=== PATIENT | male | born 1970 | race Caucasian/White ===

== ENCOUNTER 2017-04-23 10:42 | Emergency (ER) | payer OTHER ==
[2017-04-23 10:50] VITALS: BMI 26.6
--- NOTE | 2017-04-23 10:51 | PDOC ---
History of Present Illness - General History Source: Patient, Spouse Exam Limitations: No Limitations, Language Barrier, Other ( translates for him) - History of Present Illness Initial Comments: 04/23/17 11:14 46 yo male with history of HTN and DM is not taking any medications except daily aspirin developed LLQ pain last night. He has vomited once and had one runny stool this morning, he presents now because the pain is too much! Timing/Duration: 24 hours, intermittent Severity: moderate Modifying Factors: improves with: other (Nothing makes it worse or better) Aspirin Received prior to arrival: Yes: 81 mg x 1 - General Chief Complaint: Pain, Acute Stated Complaint: PAIN Time Seen by Provider: 04/23/17 10:48 Past History - Past Medical History Diabetes: Yes (No Medicines or Insulin) HTN: Yes (No Medicine) - Surgical History Abdominal Surgery: No - Past Medical History Allergies/Adverse Reactions: Allergies Allergy/AdvReac Type Severity Reaction Status Date / Time No Known Allergies Allergy Verified 04/23/17 10:46 Home Medications: Ambulatory Orders Aspirin [ASA -] 81 mg PO DAILY 04/23/17 Losartan Potassium 25 mg PO DAILY 04/23/17 Ondansetron [Zofran Odt -] 4 mg SL TID #21 od.tablet 04/23/17 Oxycodone HCl/Acetaminophen [Percocet 5-325 mg Tablet] 1 tab PO Q6H #20 tablet MDD 6 04/23/17 Sitagliptin Phosphate [Januvia] 25 mg PO DAILY 04/23/17 Tamsulosin HCl [Flomax] 0.4 mg PO DAILY #10 cap.er.24h MDD 1 04/23/17 Review of Systems - Review of Systems Able to Perform ROS?: Yes Is the patient limited [place] proficient: Yes Constitutional: Yes: Loss of Appetite, Malaise. No: Chills, Fever HEENTM: No: Symptoms Reported Respiratory: No: Symptoms reported Cardiac (ROS): No: Symptoms Reported ABD/GI: Yes: See HPI, Diarrhea, Nausea, Vomiting : No: Symptoms Reported Musculoskeletal: No: Symptoms Reported Integumentary: No: Symptoms Reported Neurological: No: Symptoms reported Psychiatric: No: Anxiety, Depression Endocrine: No: Symptoms Reported Hematologic/Lymphatic: No: Symptoms Reported All Other Systems: Reviewed and Negative *Physical Exam - Vital Signs Last Vital Signs Temp Pulse Resp BP Pulse Ox 97.7 F 63 16 152/101 100 04/23/17 10:46 04/23/17 10:46 04/23/17 10:46 04/23/17 10:46 04/23/17 10:46 - Physical Exam Comments: 04/23/17 11:17 WN/WD, Lying on his side, Non-Toxic, NAD General Appearance: Yes: Nourished. No: Apparent Distress HEENT: positive: EOMI, MAYUR, Normal ENT Inspection, Normal Voice, Pharynx Normal Neck: positive: Supple. negative: Tender Respiratory/Chest: positive: Lungs Clear, Normal Breath Sounds. negative: Chest Tender Cardiovascular: positive: Regular Rhythm, Regular Rate. negative: Murmur Gastrointestinal/Abdominal: positive: Normal Bowel Sounds, Tender, Flat, Soft, Tenderness, Other (Tender in LLQ without any peritoneal signs) Male Genitalia: positive: other (not performed) Rectal Exam: positive: deferred Lymphatic: negative: Adenopathy, Tenderness Musculoskeletal: positive: Normal Inspection. negative: CVA Tenderness Extremity: positive: Normal Capillary Refill, Normal Inspection, Normal Range of Motion Integumentary: positive: Normal Color, Dry, Warm Neurologic: positive: fashion model II-XII NML intact, Fully Oriented, Alert, Normal Mood/ Affect ED Treatment Course - LABORATORY CBC & Chemistry Diagram: 04/23/17 11:25 04/23/17 11:25 *DC/Admit/Observation/Transfer - Discharge Dispostion Admit: No Diagnosis at time of Disposition: Calculus of left kidney - Discharge Dispostion Disposition: HOME Condition at time of disposition: Good - Referrals Referrals: Adrián Ruiz MD., MD [Staff Physician] - - Patient Instructions Printed Discharge Instructions: Kidney Stones -- Adult, DI for Kidney Stones Additional Instructions: Sorry this hurts so badly- Follow up with Dr. Ruiz as soon as possible Return to us if worse or new symptoms occur Best- Dr. Rush Ballesteros
[2017-04-23] MEDS ORDERED: ONDANSETRON 4 MG/2 ML VIAL IVPUSH ONE (11:21)
[2017-04-23] MEDS ORDERED: HYDROmorphone HCL CARPU-JECT 1 MG/1 ML DISP.SYRIN IVPUSH ONE (11:21)
[2017-04-23] MEDS ORDERED: SODIUM CHLORIDE 1,000 ML IV SCH (11:30)
[2017-04-23] MEDS ORDERED: HYDROmorphone HCL CARPU-JECT 1 MG/1 ML DISP.SYRIN ONE (11:41)
[2017-04-23] MEDS ORDERED: ONDANSETRON 4 MG/2 ML VIAL ONE (11:41)
[2017-04-23 11:56] LABS: EOSINOPHIL 0.8 % (0-4.5); MCH 29.7 pg (25.7-33.7); MCHC 34.3 g/dl (32.0-35.9); MEAN CELL VOLUME 86.4 fl (80-96); MEAN PLT VOLUME 7.9 fl (7.5-11.1); NEUTROPHILS 75.6 % (42.8-82.8); PLATELET COUNT 264 K/MM3 (134-434); WHITE BLOOD COUNT 9.3 K/mm3 (4.0-10.0)
[2017-04-23 12:12] LABS: INR 1.04 (0.82-1.09); PROTHROMBIN TIME (PATIENT) 11.5 SEC (9.98-11.88)
[2017-04-23 12:22] LABS: ALBUMIN 4.4 g/dl (3.4-5.0); ALK PHOS 80 U/L (45-117); ANION GAP 8 (8-16); BILIRUBIN,TOTAL 0.6 mg/dL (0.2-1.0); CALCIUM 9.5 mg/dL (8.5-10.1); CO2 27 mmol/L (21-32); CREATININE 1.1 mg/dL (0.7-1.3); GLUCOSE,RANDOM 205 mg/dL (74-106); SGOT/AST 42 U/L (15-37); SGPT/ALT 83 U/L (12-78); TOT PROT 7.3 g/dl (6.4-8.2)
[2017-04-23 13:20] LABS: URINE APPEARANCE CLEAR; URINE BILIRUBIN NEGATIVE (NEGATIVE); URINE BLOOD NEGATIVE (NEGATIVE); URINE COLOR YELLOW; URINE GLUCOSE (UA) NEGATIVE (NEGATIVE); URINE KETONE NEGATIVE (NEGATIVE); URINE LEUK ESTERASE NEGATIVE (NEGATIVE); URINE NITRITE NEGATIVE (NEGATIVE); URINE PROTEIN NEGATIVE (NEGATIVE); URINE UROBILINOGEN NEGATIVE mg/dL (0.2-1.0)
[2017-04-23 13:35] VITALS: TEMP 98.4
[2017-04-23 16:25] VITALS: BP 139/86; PULSE 76
== END 2017-04-23 17:22 | disposition home or self-care (01) ==
LOC: JER 10:42
PROC: 3E033NZ Introduction of Analgesics, Hypnotics, Sedatives into Peripheral Vein, Percutaneous Approach (ICD-10-PCS; principal; 2017-04-23)
PROC: 3E033GC Introduction of Other Therapeutic Substance into Peripheral Vein, Percutaneous Approach (ICD-10-PCS; 2017-04-23)
PROC: 3E0337Z Introduction of Electrolytic and Water Balance Substance into Peripheral Vein, Percutaneous Approach (ICD-10-PCS; 2017-04-23)
DX: N20.0 Calculus of kidney (principal)
CPT/HCPCS: 36415; 74177-TC; 80053; 81003; 83690; 85025; 85610; 86850; 86900; 86901; 87086; 99283-25; Q9967

== ENCOUNTER 2017-05-09 17:33 | Emergency (ER) | payer OTHER ==
[2017-05-09 17:48] VITALS: BMI 27.3
[2017-05-09] MEDS ORDERED: morphine CARPU-JECT 4 MG/1 ML DISP.SYRIN IVPUSH ONE (18:17)
--- NOTE | 2017-05-09 18:22 | PDOC ---
History of Present Illness - General History Source: Patient Exam Limitations: No Limitations - History of Present Illness Initial Comments: 05/09/17 18:56 The patient is a 46 year old male, with a significant past medical history of HTN and borderline DM, who presents to the emergency department with left flank pain, dysuria, urgency, chills and fever for about 2 days. The patient notes having a history of kidney stones. Patient was here 04/23/17 and was discharged home with the diagnosis of kidney stones. He also has some complaints of chest discomfort. He denies any recent headache or dizziness. He denies any recent nausea, vomit, diarrhea or constipation. He denies any recent shortness of breath. He denies any recent frequency, or hematuria. Allergies: NKA Past surgical history: None reported. Social History: Nonsmoker. Denies EtOH use and recreational drug use. <Julio César Elizabeth - Last Filed: 05/09/17 19:01> <Yary Martinez - Last Filed: 05/13/17 09:06> - General Chief Complaint: Urinary Problem Stated Complaint: PAIN/ FEVER Time Seen by Provider: 05/09/17 17:54 Past History <Julio César Elizabeth - Last Filed: 05/09/17 19:01> - Past Medical History Diabetes: Yes (No Medicines or Insulin) HTN: Yes (No Medicine) - Surgical History Abdominal Surgery: No - Immunization History Immunization Up to Date: No - Suicide/Smoking/Psychosocial Hx Smoking History: Never smoked Have you smoked in the past 12 months: No Information on smoking cessation initiated: No Hx Alcohol Use: No Drug/Substance Use Hx: No Substance Use Type: None <Yary Martinez - Last Filed: 05/13/17 09:06> - Past Medical History Allergies/Adverse Reactions: Allergies Allergy/AdvReac Type Severity Reaction Status Date / Time No Known Allergies Allergy Verified 05/09/17 17:45 Home Medications: Ambulatory Orders Aspirin [ASA -] 81 mg PO DAILY 04/23/17 Losartan Potassium 25 mg PO DAILY 04/23/17 Ondansetron [Zofran Odt -] 4 mg SL TID #21 od.tablet 04/23/17 Tamsulosin HCl [Flomax] 0.4 mg PO DAILY #10 cap.er.24h MDD 1 04/23/17 Ibuprofen 800 mg PO TID #30 tablet 05/09/17 Levofloxacin [Levaquin -] 500 mg PO DAILY #7 tablet 05/09/17 Oxycodone HCl/Acetaminophen [Percocet 5-325 mg Tablet] 1 tab PO Q6H #20 tablet MDD 6 05/09/17 Review of Systems - Review of Systems Able to Perform ROS?: Yes Comments:: 05/09/17 18:27 GENERAL/CONSTITUTIONAL: +fever and chills. No weakness. HEAD, EYES, EARS, NOSE AND THROAT: No change in vision. No ear pain or discharge. No sore throat. CARDIOVASCULAR: No chest pain or shortness of breath. RESPIRATORY: No cough, wheezing, or hemoptysis. GASTROINTESTINAL: +Left flank pain. No nausea, vomiting, diarrhea or constipation. GENITOURINARY: +dysuria No frequency, or change in urination. MUSCULOSKELETAL: No joint or muscle swelling or pain. No neck or back pain. SKIN: No rash NEUROLOGIC: No headache, vertigo, loss of consciousness, or change in strength/ sensation. ENDOCRINE: No increased thirst. No abnormal weight change. HEMATOLOGIC/LYMPHATIC: No anemia, easy bleeding, or history of blood clots. ALLERGIC/IMMUNOLOGIC: No hives or skin allergy. <Julio César Elizabeth - Last Filed: 05/09/17 19:01> *Physical Exam - Vital Signs Last Vital Signs Temp Pulse Resp BP Pulse Ox 99.3 F 126 H 16 107/77 98 05/09/17 17:46 05/09/17 17:46 05/09/17 17:46 05/09/17 17:46 05/09/17 17:46 - Physical Exam Comments: 05/09/17 19:01 GENERAL: Awake, alert, and fully oriented, in no acute distress HEAD: No signs of trauma EYES: PERRLA, EOMI, sclera anicteric, conjunctiva clear ENT: Auricles normal inspection, hearing grossly normal, nares patent, Moist mucosa NECK: Normal ROM, supple, JVD, or masses LUNGS: Breath sounds equal, clear to auscultation bilaterally. No wheezes, and no crackles HEART: Regular rate and rhythm, normal S1 and S2, no murmurs, rubs or gallops ABDOMEN: Soft, LEft CVA and abdominal tenderness, normoactive bowel sounds. No guarding, no rebound. No masses EXTREMITIES: Normal range of motion, no edema. No clubbing or cyanosis. No cords, erythema, or tenderness. 2+DP/PT pulses. NEUROLOGICAL: Normal speech, normal gait, moves all extremities equally. Speech clear. SKIN: Warm, Dry, normal turgor, no rashes or lesions noted. <Julio César Elizabeth - Last Filed: 05/09/17 19:01> - Vital Signs Last Vital Signs Temp Pulse Resp BP Pulse Ox 99.3 F 126 H 16 107/77 98 05/09/17 17:46 05/09/17 17:46 05/09/17 17:46 05/09/17 17:46 05/09/17 17:46 <Yary Martinez - Last Filed: 05/13/17 09:06> ED Treatment Course - LABORATORY CBC & Chemistry Diagram: 05/09/17 18:30 05/09/17 18:30 <Julio César Elizabeth - Last Filed: 05/09/17 19:01> - LABORATORY CBC & Chemistry Diagram: 05/09/17 18:30 05/09/17 18:30 <Yary Martinez - Last Filed: 05/13/17 09:06> Medical Decision Making - Medical Decision Making 05/09/17 18:19 46 yo male with h/o renal colic, borderline for DM, recently diagnosed stone on ct 04/23/2017 mild left hydro her with persistant pain, chills. nausea. saw pcp who started him on antiobiotcis. on exam awake alert lungs clear heart rrr no mrg. abd soft nt. left cva ttp. ext wwp,. nuero alert oriented x 3. plan : differential: sepsis, uti, worsening hydro, recurrent stone. plan labs ua urine culture ct a/p. pain control <Yary Martinez - Last Filed: 05/13/17 09:06> *DC/Admit/Observation/Transfer - Attestations Scribe Attestion: 05/09/17 18:27 Documentation prepared by Julio César Elizabeth, acting as chief medical technologist for Yary Martinez MD. <Julio César Elizabeth - Last Filed: 05/09/17 19:01> <Yary Martinez - Last Filed: 05/13/17 09:06> Diagnosis at time of Disposition: Kidney stone on left side, UTI (urinary tract infection) - Discharge Dispostion Disposition: HOME - Prescriptions Prescriptions: Ibuprofen 800 mg PO TID #30 tablet Levofloxacin [Levaquin -] 500 mg PO DAILY #7 tablet Oxycodone HCl/Acetaminophen [Percocet 5-325 mg Tablet] 1 tab PO Q6H #20 tablet MDD 6 - Referrals Referrals: Odilon Rashid MD [Staff Physician] - Shane Ag MD [Staff Physician] - Quintin Taylor MD [Staff Physician] - - Patient Instructions Printed Discharge Instructions: DI for Kidney Stones, DI for Urinary Tract Infection (UTI) Print Language: ARABIC
[2017-05-09] MEDS ORDERED: morphine CARPU-JECT 2 MG/1 ML DISP.SYRIN ONE (18:29)
[2017-05-09 18:42] LABS: BASOPHIL 0.8 % (0-2.0); EOSINOPHIL 0.1 % (0-4.5); MCH 29.5 pg (25.7-33.7); MCHC 34.6 g/dl (32.0-35.9); MEAN CELL VOLUME 85.3 fl (80-96); MEAN PLT VOLUME 7.6 fl (7.5-11.1); PLATELET COUNT 260 K/MM3 (134-434); RDW 12.9 % (11.9-15.9); WHITE BLOOD COUNT 13.4 K/mm3 (4.0-10.0)
[2017-05-09 18:46] LABS: URINE APPEARANCE CLEAR; URINE BILIRUBIN NEGATIVE (NEGATIVE); URINE BLOOD 1+ (NEGATIVE); URINE COLOR YELLOW; URINE GLUCOSE (UA) NEGATIVE (NEGATIVE); URINE KETONE 1+ (NEGATIVE); URINE NITRITE NEGATIVE (NEGATIVE); URINE PROTEIN NEGATIVE (NEGATIVE); URINE UROBILINOGEN NEGATIVE mg/dL (0.2-1.0)
[2017-05-09 19:03] LABS: ALBUMIN 4.2 g/dl (3.4-5.0); ANION GAP 10 (8-16); BILIRUBIN,TOTAL 1.1 mg/dL (0.2-1.0); CALCIUM 9.7 mg/dL (8.5-10.1); CO2 28 mmol/L (21-32); GLUCOSE,RANDOM 128 mg/dL (74-106); SGOT/AST 38 U/L (15-37); SGPT/ALT 72 U/L (12-78); TOT PROT 7.7 g/dl (6.4-8.2)
[2017-05-09 19:04] LABS: ALK PHOS 83 U/L (45-117); URINE MUCUS RARE; URINE RBC 1 /hpf (0-3); URINE WBC 25 /hpf (3-5)
[2017-05-09] MEDS ORDERED: CEFTRIAXONE 1 GM in DEXTROSE 5%-WATER - 50 ML IVPB ONE (19:17)
[2017-05-09] MEDS ORDERED: SODIUM CHLORIDE 0.9% 1000 ML INFUS.BAG IV ONE (19:17)
[2017-05-09] MEDS ORDERED: CEFTRIAXONE 50 ML ONE (19:28)
[2017-05-09 20:42] LABS: URINE LEUK ESTERASE TRACE (NEGATIVE)
[2017-05-09] MEDS ORDERED: LEVOFLOXACIN 500 MG TABLET (FP) PO ONE (22:29)
[2017-05-09] MEDS ORDERED: KETOROLAC TROMETHAMINE 30 MG/1 ML VIAL IVPUSH ONE (22:30)
--- NOTE | 2017-05-09 22:35 | PDOC ---
*Physical Exam - Vital Signs Last Vital Signs Temp Pulse Resp BP Pulse Ox 99.3 F 126 H 16 107/77 98 05/09/17 17:46 05/09/17 17:46 05/09/17 17:46 05/09/17 17:46 05/09/17 17:46 ED Treatment Course - LABORATORY CBC & Chemistry Diagram: 05/09/17 18:30 05/09/17 18:30 - ADDITIONAL ORDERS Additional order review: Laboratory Results 05/09/17 05/09/17 05/09/17 19:45 18:30 18:30 Sodium 135 L Potassium 4.4 Chloride 97 L Carbon Dioxide 28 Anion Gap 10 BUN 18 D Creatinine 1.0 Creat Clearance w eGFR > 60 Random Glucose 128 H D Lactic Acid 1.3 Calcium 9.7 Total Bilirubin 1.1 H D AST 38 H ALT 72 Alkaline Phosphatase 83 Total Protein 7.7 Albumin 4.2 Urine Color Yellow Urine Appearance Clear Urine pH 8.0 D Ur Specific [place] 1.015 Urine Protein Negative Urine Glucose (UA) Negative Urine Ketones 1+ H Urine Blood 1+ H Urine Nitrite Negative Urine Bilirubin Negative Urine Urobilinogen Negative Ur Leukocyte Esterase Trace H Urine RBC 1 Urine WBC 25 Ur Epithelial Cells Rare Urine Mucus Rare 05/09/17 18:30 RBC 4.89 MCV 85.3 MCHC 34.6 RDW 12.9 MPV 7.6 Neutrophils % 80.0 Lymphocytes % 9.2 D Monocytes % 9.9 Eosinophils % 0.1 D Basophils % 0.8 - Medications Given in the ED: ED Medications Discontinued Medications Generic Name Dose Route Start Last Admin Trade Name Freq PRN Reason Stop Dose Admin Ceftriaxone Sodium 1 gm/ 50 mls @ 100 mls/hr 05/09/17 19:17 05/09/17 19:45 Dextrose IVPB 05/09/17 19:46 100 mls/hr ONCE ONE Administration Morphine Sulfate 4 mg 05/09/17 18:17 05/09/17 18:35 Morphine Injection - IVPUSH 05/09/17 18:18 4 mg ONCE ONE Administration Sodium Chloride 1,000 ml 05/09/17 19:17 05/09/17 19:56 Normal Saline - IV 05/09/17 19:18 1,000 ml ONCE ONE Administration *DC/Admit/Observation/Transfer Diagnosis at time of Disposition: Kidney stone on left side, Urinary tract infection - Discharge Dispostion Disposition: HOME Condition at time of disposition: Stable Admit: No - Referrals Referrals: Odilon Rashid MD [Staff Physician] - Shane Ag MD [Staff Physician] - Quintin Taylor MD [Staff Physician] - - Patient Instructions Printed Discharge Instructions: DI for Kidney Stones, DI for Urinary Tract Infection (UTI) Print Language: KYRGYZ
[2017-05-09] MEDS ORDERED: KETOROLAC TROMETHAMINE 60 MG/2 ML VIAL ONE (22:44)
[2017-05-09] MEDS ORDERED: LEVOFLOXACIN 500 MG TABLET (FP) ONE (22:44)
[2017-05-09] MEDS ORDERED: ACETAMINOPHEN 325 MG TABLET (FP) PO ONE (22:58)
[2017-05-09] MEDS ORDERED: ACETAMINOPHEN 325 MG TABLET (FP) ONE (22:59)
[2017-05-09 23:43] VITALS: PULSE 100; TEMP 99.8
[2017-05-09 23:44] VITALS: BP 125/80
--- NOTE | 2017-05-10 09:07 | EKG ---
Test Reason : Blood Pressure : / mmHG Vent. Rate : 108 BPM Atrial Rate : 108 BPM P-R Int : 154 ms QRS Dur : 078 ms QT Int : 304 ms P-R-T Axes : 022 007 002 degrees QTc Int : 407 ms SINUS TACHYCARDIA NONSPECIFIC T WAVE ABNORMALITY ABNORMAL ECG NO PREVIOUS ECGS AVAILABLE Confirmed by AC ROGERS MD ([id number]) on 05/10/2017 9:07:03 AM Referred By: Confirmed By:AC ROGERS MD
== END 2017-05-09 23:44 | disposition home or self-care (01) ==
LOC: JER 17:33
PROC: 3E03329 Introduction of Other Anti-infective into Peripheral Vein, Percutaneous Approach (ICD-10-PCS; principal; 2017-05-09)
PROC: 3E0337Z Introduction of Electrolytic and Water Balance Substance into Peripheral Vein, Percutaneous Approach (ICD-10-PCS; 2017-05-09)
PROC: 3E033NZ Introduction of Analgesics, Hypnotics, Sedatives into Peripheral Vein, Percutaneous Approach (ICD-10-PCS; 2017-05-09)
PROC: 3E0337Z Introduction of Electrolytic and Water Balance Substance into Peripheral Vein, Percutaneous Approach (ICD-10-PCS; 2017-05-09)
DX: N39.0 Urinary tract infection, site not specified (principal); N20.0 Calculus of kidney; I10 Essential (primary) hypertension; R73.03 Prediabetes; Z79.82 Long term (current) use of aspirin
CPT/HCPCS: 36415; 74176; 80053; 81003; 81015; 83605; 85025; 87040; 87086; 93005; 93010; 99283-25